=== PATIENT | male | born 1945 | race Asian ===

== ENCOUNTER → 2017-02-07 | Outpatient (CLI) | payer MEDICARE, OTHER ==
[~2017-02-07] MED LIST: ACCUPRIL20 MG PO; ACTOPLUS MET1 TABLE1 PO; ADULT LOW DOSE81 M1 PO; ALEVE220 M1 PO; AMARYL2 MG PO; ASPIR-LOW81 M1 PO; DIABETA,MICRON2.5 MG PO; GLUCOPHAGE1000 MG PO; JANUVIA100 MG PO; METOPROLOL SUCC25 MG PO; NORVASC2.5 MG PO; QUINAPRIL-HCTZ1 EAC1 PO; QUINARETIC PO; SIMVASTATIN10 MG PO; SIMVASTATIN40 M1 PO
== END | disposition home or self-care (01) ==
LOC: CDC 14:35
DX: I10 Essential (primary) hypertension (principal); I45.10 Unspecified right bundle-branch block; I44.4 Left anterior fascicular block
CPT/HCPCS: 93000